=== PATIENT | female | born 1965 ===

== ENCOUNTER 2024-12-04 07:31 | Outpatient (CLI) | payer BC, SELFPAY ==
--- NOTE | 2024-12-04 07:35 | NMCV_ITS ---
NM massiel perf SPECT r/s* [id number] Jaymie Peña Age: 59 Gender: F : 1965 Exam Date: 12/04/2024 08:40 Ordering Phys: Mk Nicole MD Technologist: ED Abraham Exam Location: [facility] [place] Indications: STRESS TEST Please [facility] IMAGE PROTOCOL Rest/Stress 1 Lexiscan Day Radiopharmaceutical Dose (mCi) Administration Site Administered by Rest: Tc-99m 10.7 IV ED Menard Sestamibi Stress:Tc-99m 32.9 IV ED Menard Sestamibi Rest: 04-Dec-2024 60 Discovery 630 Stress: 04-Dec-2024 30 Discovery 630 0.4mg Lexiscan. Images obtained in supine and prone position. SPECT RESULTS Technical Quality: Good Raw Data Analysis: Normal Image Corrections: No attenuation or motion correction applied Summed Stress Score: 0 Summed Rest Score: 1 Summed Difference Score: 0 PERFUSION FINDINGS Uniform myocardial tracer uptake with no significant Perfusion normalities FUNCTIONAL RESULTS (calculated via Gated SPECT) Stress Image LV EF (%): 85 Stress EDV (mL):40 TID: 0.86 Stress ESV (mL):6 FUNCTIONAL FINDINGS: Segmental wall motion analysis revealing no gross wall motion abnormalities IMPRESSIONS 1. Unremarkable Myocardial perfusion imaging 2. Normal LV ejection fraction of 85%. 3. LV wall motion analysis revealing no gross wall motion abnormalities. 4. Normal LV volume Low probability for coronary ischemia, based on the above findings Dr Josh Charles MD [facility] (Electronically Signed) Final Date: 04 December 2024 17:02 S
--- NOTE | 2024-12-04 07:35 | ECG_ITS ---
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 Interpretive Statements Lung unchanged pre/post procedure; Intraprocedure shortess of breath; Symptoms resoled by discharge PROCEDURE: At the baseline, the EKG revealed normal sinus rhythm with normal ST Ts. The baseline heart was 87 bpm with a blood pressue of 133/98 mm of Hg Lexiscan was infused over a period of 20 seconds. A total of 0.4 milligrams of Lexiscan was infused. The stress phase was continued for a total of 5 minutes. Heart rate at the end of the stress phase was 107 bpm with a blood pressure 133/77 mm of Hg. The EKG at the peak infusion revealed no significant changes. Sestamibi was injected 20 seconds after the Lexiscan infusion. Heart rate at the end of the recovery phase was 94 bpm with a blood pressure of 135/80 mm of Hg. CONCLUSION: 1. No significant EKG changes with the LexiScan infusion 2. No LexiScan induced chest pain or cardiac arrhythmia 3. Normal blood pressure and heart rate response 4. Sestamibi/sestamibi perfusion scan pending; see separate report. Electronically Signed On 12-08-2024 16:51:21 CDT by Josh Charles M.D. [email or web address]
[2024-12-04 07:38] VITALS: BMI 30.5
[2024-12-04] MEDS: regadenoson 0.4 Mg/5 ml Syringe IVP (09:16)
[2024-12-04 09:25] VITALS: BP 135/80; PULSE 94
== END 2024-12-04 07:32 | disposition home or self-care (01) ==
PROVIDERS: Visit Provider Neurological Surgery
DX: I70.209 Unspecified atherosclerosis of native arteries of extremities, unspecified extremity (principal)
CPT/HCPCS: 36415; 78452; 93017; 96374; A9500; J2785